=== PATIENT | male | born 1980 | race Two or more races ===

== ENCOUNTER → 2020-10-14 11:58 | Outpatient (BNVA) | payer OTHER, SELFPAY | PROVIDERS: PCP Internal Medicine; Visit Provider Physician Assistant Medical | DX: S16.1XXA Strain of muscle, fascia and tendon at neck level, initial encounter (principal); S46.812A Strain of other muscles, fascia and tendons at shoulder and upper arm level, left arm, initial encounter; X50.1XXA Overexertion from prolonged static or awkward postures, initial encounter; M54.2 Cervicalgia | CPT/HCPCS: 99202 ==

== ENCOUNTER → 2020-10-17 09:31 | Outpatient (BNVA) | payer OTHER, SELFPAY | PROVIDERS: PCP Internal Medicine; Visit Provider Physician Assistant Medical | DX: S16.1XXA Strain of muscle, fascia and tendon at neck level, initial encounter (principal); S46.812A Strain of other muscles, fascia and tendons at shoulder and upper arm level, left arm, initial encounter; X50.1XXA Overexertion from prolonged static or awkward postures, initial encounter; M54.2 Cervicalgia | CPT/HCPCS: 99213 ==

== ENCOUNTER → 2023-01-26 11:32 | Outpatient (BNVA) | payer OTHER, SELFPAY | PROVIDERS: PCP Internal Medicine; Visit Provider Physician Assistant Medical | DX: M77.11 Lateral epicondylitis, right elbow (principal) | CPT/HCPCS: 99202 ==

== ENCOUNTER → 2023-02-03 13:31 | Outpatient (BNVA) | payer OTHER, SELFPAY | PROVIDERS: PCP Internal Medicine; Visit Provider Physician Assistant | DX: M77.11 Lateral epicondylitis, right elbow (principal) | CPT/HCPCS: 99214 ==

== ENCOUNTER → 2023-02-15 07:57 | Outpatient (BNVA) | payer OTHER, SELFPAY | PROVIDERS: PCP Internal Medicine; Visit Provider Internal Medicine | DX: M77.11 Lateral epicondylitis, right elbow (principal) | CPT/HCPCS: 99213 ==

== ENCOUNTER → 2023-03-01 08:28 | Outpatient (BNVA) | payer OTHER, SELFPAY | PROVIDERS: PCP Internal Medicine; Visit Provider Internal Medicine | DX: M77.11 Lateral epicondylitis, right elbow (principal) | CPT/HCPCS: 99213 ==

== ENCOUNTER → 2023-03-22 07:51 | Outpatient (BNVA) | payer OTHER, SELFPAY | PROVIDERS: PCP Internal Medicine; Visit Provider Internal Medicine | DX: M77.11 Lateral epicondylitis, right elbow (principal) | CPT/HCPCS: 99213 ==

== ENCOUNTER → 2023-03-29 14:04 | Outpatient (BNVA) | payer SELFPAY | PROVIDERS: PCP Internal Medicine | DX: M77.11 Lateral epicondylitis, right elbow (principal) ==

== ENCOUNTER 2023-03-31 07:30 | Outpatient (RCR) | payer OTHER, SELFPAY ==
--- NOTE | 2023-02-19 08:46 | MHC.OT.EP ---
[address] [phone] Occupational Therapy Plan of Care Patient Name: Liset Underwood Date of Evaluation: 02/19/23 Diagnosis: Right lateral epicondylitis Pain Location: Right lateral epicondyle Pain free at rest Pain present in the morning or with use Pain Score: 6 Pain Scale Used: Numeric (0 - 10) Aggravating Factors: Bending w/ sleep, gripping, lifting Alleviating Factors: No using arm, has not tried modalities Assessment: Pt was at working, securing a machine on a trailer w/ a chain and binder, pulled the lever tight and felt pain in right elbow, radiating down his forearm. He was seen in work connection the next week, had follow up and was referred to OT for continued management. On assessment, he has good range in all joints, but has low strength with even weaker grasp and increased pain w/ elbow extended. Pt localizes pain to lateral epicondyle. He will benefit from cont'd therapy services to progress strength and functional use while educating on joint protection and activity modification w/ ultimate goal of pain free return to work. 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 Thank you once again for your referral.
--- NOTE | 2023-03-31 07:57 | MHC.OT.DC ---
[address] [phone] F: [phone] Occupational Therapy Discharge Note Patient Name: Liset Underwood Provider: Dr Nathan Damon Diagnosis: Right lateral epicondylitis Date of Evaluation: 02/19/23 Date of Discharge: 03/31/23 Treatments to Date: 12 Discharge Status: Achieved Goals Improved Function Discharge Summary: Liset was referred to OT w/ acute lateral epicondylitis. He is doing well, pain free at most times, still avoiding lifting very heavy objects and limiting some lawn care (weed whacking) but otherwise good participation in daily activities, good follow through w/ HEP and overall good strength. Goals met and I recommend continue HEP and tennis elbow strap w/ heavier daily activities. Electronically Signed By: Harleen Yin OTR/L CHT Please Sign and return to therapist, thank you for your referral.
== END 2023-03-31 07:57 | disposition home or self-care (01) ==
LOC: HO.OT 07:30
PROVIDERS: PCP Internal Medicine; Visit Provider Internal Medicine
DX: M77.11 Lateral epicondylitis, right elbow (principal)
CPT/HCPCS: 97033; 97035; 97110; 97165

== ENCOUNTER → 2023-04-09 07:49 | Outpatient (BNVA) | payer OTHER, SELFPAY | PROVIDERS: PCP Internal Medicine; Visit Provider Internal Medicine | DX: M77.11 Lateral epicondylitis, right elbow (principal) | CPT/HCPCS: 99213 ==

== ENCOUNTER → 2023-05-07 14:12 | Outpatient (BNVA) | payer OTHER, SELFPAY | PROVIDERS: PCP Internal Medicine; Visit Provider Physician Assistant | DX: S60.470A Other superficial bite of right index finger, initial encounter (principal); W54.0XXA Bitten by dog, initial encounter; M77.11 Lateral epicondylitis, right elbow | CPT/HCPCS: 99203 ==

== ENCOUNTER → 2023-05-17 15:44 | Outpatient (BNVA) | payer OTHER, SELFPAY | PROVIDERS: PCP Internal Medicine; Visit Provider Internal Medicine | DX: S60.471A Other superficial bite of left index finger, initial encounter (principal); W54.0XXA Bitten by dog, initial encounter | CPT/HCPCS: 99213 ==

== ENCOUNTER 2023-05-19 07:57 | Outpatient (AMB) | payer OTHER, SELFPAY ==
--- NOTE | 2023-05-19 08:06 | MHC.OFFVIS ---
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 Patient reports he was told by work connection having tennis elbow. States seen at work [facility] for a work injury and was referred to orthopedics. Patient attended OT which provided improvement but continues to have discomfort with gripping items. Denies numbness or tingling. 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 He was seen at the work connection where he was referred to OT he did 12 sessions, he has some pain relief but has occassionally experiences difficulty with gripping. He is right hand dominant. He has been working light duty for the past 3-4 weeks. 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 Review of Systems Const All systems reviewed & are unremarkable except as noted in HPI and below Physical Exam Vital Signs: BMI result Body Mass Index 35.2 Const General: cooperative, healthy appearing, comfortable, no acute distress, well developed and alert Orientation/consciousness: patient oriented x3 HEENT Head: Yes normal to inspection, Yes normocephalic and Yes atraumatic Eyes General: appearance normal, both eyes and all related structures Resp Effort & Inspection: normal respiratory effort and able to speak in complete sentences Cardio Rate: regular rate Peripheral pulses: Peripheral pulses 2+ throughout GI Palpation (GI): Soft to palpation Skin Lesions: no lesions Rashes: no rashes Neuro General: patient oriented x3 Extrem Other: Right elbow: Skin intact. No erythema or swelling. ROM full without pain. Tenderness over the lateral epicondyle and pain with resisted wrist extension. NVI. Assessment & Plan Assessment & Plan (1) Lateral epicondylitis of right elbow: Code(s): M77.11 - Lateral epicondylitis, right elbow Plan He will continue to work on his home exercises program that he was given with occupational therapy. He does have a brace that he was given for his elbow which I encouraged to him to use with working. He will return to work full duty with no restrictions on May 24. If symptoms arise and he has worsening pain, he can contact me for a steroid injection, otherwise he will follow-up as needed. Patient Instructions: Scribed for Rambo Rojas PA-C, by Elio Briceño medical technician assistant, on 05/19/2023 at 8:00 AM EST. I, Rambo Rojas PA-C, have personally reviewed and agree with the information entered by the scribe. Coding Level of Care Code New Pt Level 3 (28566) Diagnoses Lateral epicondylitis of right elbow M77.11
[2023-05-19 08:10] VITALS: BMI 35.2
== END 2023-05-19 08:52 | disposition home or self-care (01) ==
PROVIDERS: PCP Internal Medicine; Visit Provider Physician Assistant
DX: M77.11 Lateral epicondylitis, right elbow (principal)
CPT/HCPCS: 99203

== ENCOUNTER → 2023-05-19 07:57 | Outpatient (BNVA) | payer OTHER, SELFPAY | PROVIDERS: PCP Internal Medicine; Visit Provider Physician Assistant ==

== ENCOUNTER → 2023-05-21 07:58 | Outpatient (BNVA) | payer OTHER, SELFPAY | PROVIDERS: PCP Internal Medicine; Visit Provider Internal Medicine | DX: M77.11 Lateral epicondylitis, right elbow (principal) | CPT/HCPCS: 99213 ==